=== PATIENT | female | born 1935 | race Caucasian/White ===

== ENCOUNTER 2021-04-16 10:49 | Inpatient (IN) ==
[2021-04-16] MEDS ORDERED: HYDROmorphone 2 MG/1 ML VIAL IV STA (11:13)
[2021-04-16] MEDS ORDERED: ONDANSETRON 4 MG/2 ML VIAL IV STA ×2 (11:13→12:22)
[2021-04-16 11:45] LABS: Basophils % 0.4 % (0.0-0.8); Eosinophils # 0.1 10*3/uL (0.0-0.87); Eosinophils % 1.3 % (0.00-10.9); Hematocrit 30.7 VOL% (35.7-47.0); Hemoglobin 9.9 GM/DL (12.0-16.0); Immature Granulocytes % 0.4 %; Immature Granulocytes Absolute 0.03 #; Lymphocytes # 1.2 10*3/uL (1.4-4.0); Mean Corpuscular HGB Conc 32.2 GM/DL (32-36); Mean Corpuscular Volume 90.3 FL (87-102); Mean Platelet Volume 9.2 FL (9.6-12.0); Monocytes % 9.4 % (1.7-12.7); Neutrophils % 70.5 % (38.7-73.9); Platelet Count 320 T/CUMM (130-400); Red Cell Distribution Width 14.9 % (9.3-17.3); White Blood Count 6.9 T/CUMM (4-12)
[2021-04-16 12:01] LABS: INR 2.3; PT Patient Result 24.4 SECS (10.5-12.0); Partial Thromboplastin Time 31.5 SECS (23.8-32.1)
[2021-04-16 12:02] LABS: Albumin 3.1 G/DL (3.4-5.0); Bilirubin,Total 0.5 MG/DL (0.20-1.00); Calcium 8.1 MG/DL (8.5-10.1); Osmolality,Calculated 268.2 MOS/KG (273-304); Potassium 4.1 MMOL/L (3.5-5.1); Total Protein 6.6 G/DL (6.4-8.2)
[2021-04-16 13:26] LABS: Bilirubin,Urine Negative (Negative); Blood, Urine Small mg/dL (Negative); Glucose,Urine (UA) Negative (Negative); Hyaline Casts,Urine 1 /LPF (0-3); Ketones,Urine Negative (Negative); Mucus,Urine Occasional /LPF (Occasional); Nitrite,Urine Positive (Negative); Protein,Urine Negative; RBC,Urine 3 /HPF (0-4); Urine Appearance CLEAR (Clear); Urine Color Yellow (Yellow); Urine Specific Gravity 1.009 (1.001-1.035); Urine Urobilinogen < 2.0 EU/DL (<2.0)
[2021-04-16] MEDS ORDERED: cefTRIAXone 1,000 MG in SODIUM CHLORIDE 0.9% 100 ML IV STA (13:33)
[2021-04-16] MEDS ORDERED: ACETAMINOPHEN 325 MG TABLET PO PRN (13:40)
[2021-04-16] MEDS: SODIUM CHLORIDE 0.45% 1,000 ML IV SCH (16:32)
[2021-04-16] MEDS: DOCUSATE SODIUM 100 MG CAPSULE PO SCH (20:30)
[2021-04-16] MEDS: ONDANSETRON 4 MG/2 ML VIAL IV PRN (23:39)
[2021-04-16] MEDS: HYDROmorphone 2 MG/1 ML VIAL IV PRN (23:40)
[2021-04-17] MEDS: methylPREDNISolone SOD SUC 40 MG/1 ML VIAL IV SCH ×3 (00:23→23:09)
[2021-04-17 06:12] LABS: Basophils % 0.3 % (0.0-0.8); Eosinophils % 0.1 % (0.00-10.9); Hematocrit 31.2 VOL% (35.7-47.0); Hemoglobin 9.9 GM/DL (12.0-16.0); Immature Granulocytes % 0.6 %; Immature Granulocytes Absolute 0.04 #; Lymphocytes # 0.8 10*3/uL (1.4-4.0); Lymphocytes % 11.5 % (21.3-54.2); Mean Corpuscular HGB Conc 31.7 GM/DL (32-36); Mean Corpuscular Volume 90.4 FL (87-102); Mean Platelet Volume 9.8 FL (9.6-12.0); Monocytes % 4.1 % (1.7-12.7); Neutrophils % 83.4 % (38.7-73.9); Platelet Count 307 T/CUMM (130-400); Red Blood Count 3.45 MC/CUMM (3.8-5.5); Red Cell Distribution Width 14.6 % (9.3-17.3); White Blood Count 7.1 T/CUMM (4-12)
[2021-04-17] MEDS: SODIUM CHLORIDE 0.45% 1,000 ML IV SCH ×2 (06:19→21:31)
[2021-04-17 06:20] LABS: INR 2.5; PT Patient Result 26.2 SECS (10.5-12.0)
[2021-04-17 06:37] LABS: Risk Ratio 2.02; VLDL Cholesterol 7.6 MG/DL
[2021-04-17] MEDS: HYDROmorphone 2 MG/1 ML VIAL IV PRN ×2 (06:49→14:44)
[2021-04-17] MEDS: ONDANSETRON 4 MG/2 ML VIAL IV PRN (06:50)
[2021-04-17 06:51] LABS: Calcium 8.5 MG/DL (8.5-10.1); Osmolality,Calculated 258.9 MOS/KG (273-304); Potassium 4.1 MMOL/L (3.5-5.1)
[2021-04-17] MEDS ORDERED: PHYTONADIONE INJ 5 MG in SODIUM CHLORIDE 0.9% 50 ML IV ONE (09:00)
[2021-04-17] MEDS: PANTOPRAZOLE 40 MG TABLET PO SCH (09:23)
[2021-04-17] MEDS: DOCUSATE SODIUM 100 MG CAPSULE PO SCH ×2 (09:23→20:07)
[2021-04-17] MEDS: amLODIPine 5 MG TABLET PO SCH (09:23)
[2021-04-17] MEDS: MONTELUKAST 10 MG TABLET PO SCH (09:23)
[2021-04-17] MEDS: cefTRIAXone 1,000 MG in SODIUM CHLORIDE 0.9% 100 ML IV SCH (09:23)
[2021-04-17] MEDS: LORATADINE 10 MG TABLET PO SCH (09:24)
[2021-04-17] MEDS: ATORVASTATIN 40 MG TABLET PO SCH (20:07)
[2021-04-18] MEDS: HYDROmorphone 2 MG/1 ML VIAL IV PRN ×2 (04:46→19:49)
[2021-04-18 05:24] LABS: Basophils % 0.1 % (0.0-0.8); Hematocrit 32.9 VOL% (35.7-47.0); Hemoglobin 10.8 GM/DL (12.0-16.0); Immature Granulocytes % 0.8 %; Immature Granulocytes Absolute 0.06 #; Lymphocytes # 0.9 10*3/uL (1.4-4.0); Lymphocytes % 12.8 % (21.3-54.2); Mean Corpuscular HGB Conc 32.8 GM/DL (32-36); Mean Corpuscular Volume 88.7 FL (87-102); Mean Platelet Volume 9.3 FL (9.6-12.0); Monocytes % 5.3 % (1.7-12.7); Platelet Count 337 T/CUMM (130-400); Red Blood Count 3.71 MC/CUMM (3.8-5.5); Red Cell Distribution Width 14.5 % (9.3-17.3); White Blood Count 7.1 T/CUMM (4-12)
[2021-04-18 05:30] LABS: INR 1.1; PT Patient Result 12.5 SECS (10.5-12.0)
[2021-04-18] MEDS ORDERED: REGADENOSON 0.4 MG/5 ML SYRINGE IV ONE (09:18)
[2021-04-18] MEDS: cefTRIAXone 1,000 MG in SODIUM CHLORIDE 0.9% 100 ML IV SCH (10:31)
[2021-04-18] MEDS: LORATADINE 10 MG TABLET PO SCH (10:32)
[2021-04-18] MEDS: MONTELUKAST 10 MG TABLET PO SCH (10:32)
[2021-04-18] MEDS: PANTOPRAZOLE 40 MG TABLET PO SCH (10:32)
[2021-04-18] MEDS: amLODIPine 5 MG TABLET PO SCH (10:32)
[2021-04-18] MEDS: DOCUSATE SODIUM 100 MG CAPSULE PO SCH ×2 (10:32→20:44)
[2021-04-18] MEDS: ATORVASTATIN 40 MG TABLET PO SCH (10:32)
[2021-04-18] MEDS: methylPREDNISolone SOD SUC 40 MG/1 ML VIAL IV SCH (11:55)
[2021-04-18] MEDS: SODIUM CHLORIDE 0.45% 1,000 ML IV SCH (15:01)
[2021-04-19] MEDS: methylPREDNISolone SOD SUC 40 MG/1 ML VIAL IV SCH ×2 (00:36→12:16)
[2021-04-19] MEDS: HYDROmorphone 2 MG/1 ML VIAL IV PRN ×3 (01:47→23:59)
[2021-04-19] MEDS: SODIUM CHLORIDE 0.45% 1,000 ML IV SCH ×3 (01:48→15:42)
[2021-04-19 05:59] LABS: PT Patient Result 11.4 SECS (10.5-12.0)
[2021-04-19 07:43] LABS: Calcium 8.4 MG/DL (8.5-10.1); Osmolality,Calculated 266.5 MOS/KG (273-304); Potassium 4.2 MMOL/L (3.5-5.1)
[2021-04-19] MEDS: amLODIPine 5 MG TABLET PO SCH (08:39)
[2021-04-19] MEDS: LORATADINE 10 MG TABLET PO SCH (08:39)
[2021-04-19] MEDS: ATORVASTATIN 40 MG TABLET PO SCH (08:39)
[2021-04-19] MEDS: cefTRIAXone 1,000 MG in SODIUM CHLORIDE 0.9% 100 ML IV SCH (08:40)
[2021-04-19] MEDS: PANTOPRAZOLE 40 MG TABLET PO SCH (08:40)
[2021-04-19] MEDS: DOCUSATE SODIUM 100 MG CAPSULE PO SCH ×2 (08:40→20:44)
[2021-04-19 09:22] LABS: ABG Base Excess 4.1 MMOL/L (-2.5-2.5); ABG HCO3 28.1 MMOL/L (20-26); ABG Oxygen Saturation 98.2 % (95-100); ABG PCO2 38.5 MM HG (35-48); ABG PH 7.468 (7.35-7.45); ABG PO2 99.6 MM HG (80-95); ABG TCO2 24.9 MMOL/L (23-27); Allen Test Positive; Pt O2 Delivery Device Room Air
[2021-04-19] MEDS: MONTELUKAST 10 MG TABLET PO SCH (09:47)
[2021-04-19] MEDS ORDERED: ETOMIDATE 40 MG/20 ML VIAL IV ONE (18:15)
[2021-04-19] MEDS ORDERED: SEVOFLURANE 1 UNIT/15 MINUTE INH ONE (18:15)
[2021-04-19] MEDS ORDERED: ROCURONIUM 50 MG/5 ML VIAL IV ONE (18:15)
[2021-04-19] MEDS ORDERED: LIDOCAINE 2% 5 ML VIAL ONE (18:15)
[2021-04-19] MEDS ORDERED: ONDANSETRON 4 MG/2 ML VIAL ONE ×2 (18:15→18:22)
[2021-04-19] MEDS ORDERED: DEXAMETHASONE 4 MG/1 ML VIAL ONE (18:15)
[2021-04-19] MEDS ORDERED: TRANEXAMIC ACID 1,000 MG/10 ML VIAL ONE (18:15)
[2021-04-19] MEDS ORDERED: fentaNYL 100 MCG/2 ML VIAL ONE (18:16)
[2021-04-19] MEDS ORDERED: ENOXAPARIN 30 MG/0.3 ML SYRINGE SUBCUT SCH (18:30)
[2021-04-19] MEDS ORDERED: METOPROLOL TARTRATE 25 MG TABLET PO ONE (19:04)
[2021-04-19] MEDS: ONDANSETRON 4 MG/2 ML VIAL IV PRN (23:58)
[2021-04-20] MEDS: methylPREDNISolone SOD SUC 40 MG/1 ML VIAL IV SCH ×3 (00:39→23:58)
[2021-04-20] MEDS: SODIUM CHLORIDE 0.45% 1,000 ML IV SCH ×2 (05:43→20:52)
[2021-04-20] MEDS: LORATADINE 10 MG TABLET PO SCH (09:24)
[2021-04-20] MEDS: DOCUSATE SODIUM 100 MG CAPSULE PO SCH ×2 (09:24→20:52)
[2021-04-20] MEDS: ATORVASTATIN 40 MG TABLET PO SCH (09:24)
[2021-04-20] MEDS: PANTOPRAZOLE 40 MG TABLET PO SCH (09:24)
[2021-04-20] MEDS: amLODIPine 5 MG TABLET PO SCH (09:24)
[2021-04-20] MEDS: MONTELUKAST 10 MG TABLET PO SCH (09:26)
[2021-04-20] MEDS: cefTRIAXone 1,000 MG in SODIUM CHLORIDE 0.9% 100 ML IV SCH (09:27)
[2021-04-20] MEDS: METOPROLOL TARTRATE 50 MG TABLET PO SCH (09:52)
[2021-04-20] MEDS: HYDROmorphone 2 MG/1 ML VIAL IV PRN (14:24)
[2021-04-21] MEDS ORDERED: SCOPOLAMINE 1.5 MG PATCH TRANSDERM ONE ×2 (04:00→05:30)
[2021-04-21 05:56] LABS: Hematocrit 36.8 VOL% (35.7-47.0); Hemoglobin 12.1 GM/DL (12.0-16.0)
[2021-04-21 06:05] LABS: PT Patient Result 11.4 SECS (10.5-12.0)
[2021-04-21] MEDS ORDERED: MIDAZOLAM 2 MG/2 ML VIAL ONE (06:38)
[2021-04-21] MEDS ORDERED: LIDOCAINE 2% 5 ML VIAL ONE (06:38)
[2021-04-21] MEDS ORDERED: PHENYLEPHRINE 1 MG/10 ML SYRINGE IV ONE ×2 (06:38→10:25)
[2021-04-21] MEDS ORDERED: propofoL 200 MG/20 ML VIAL IV ONE ×2 (06:38→09:42)
[2021-04-21] MEDS ORDERED: KETAMINE 500 MG/10 ML VIAL ONE (06:39)
[2021-04-21] MEDS ORDERED: BUPIVACAINE SPINAL 0.75% 2 ML AMP SPINAL ONE (06:41)
[2021-04-21] MEDS ORDERED: SODIUM CHLORIDE 0.9% 100 ML IV ONE (06:41)
[2021-04-21] MEDS: METOPROLOL TARTRATE 50 MG TABLET PO SCH (07:25)
[2021-04-21] MEDS ORDERED: ceFAZolin 1,000 MG VIAL ONE (09:10)
[2021-04-21] MEDS ORDERED: ONDANSETRON 4 MG/2 ML VIAL IV PRN (11:54)
[2021-04-21] MEDS ORDERED: MEPERIDINE 25 MG/1 ML VIAL IV PRN (11:54)
[2021-04-21] MEDS: LORATADINE 10 MG TABLET PO SCH (11:56)
[2021-04-21] MEDS: DOCUSATE SODIUM 100 MG CAPSULE PO SCH ×2 (11:56→20:31)
[2021-04-21] MEDS: ATORVASTATIN 40 MG TABLET PO SCH (11:56)
[2021-04-21] MEDS: PANTOPRAZOLE 40 MG TABLET PO SCH (11:57)
[2021-04-21] MEDS: MONTELUKAST 10 MG TABLET PO SCH (11:57)
[2021-04-21] MEDS: amLODIPine 5 MG TABLET PO SCH (11:57)
[2021-04-21] MEDS: cefTRIAXone 1,000 MG in SODIUM CHLORIDE 0.9% 100 ML IV SCH (11:59)
[2021-04-21] MEDS: methylPREDNISolone SOD SUC 40 MG/1 ML VIAL IV SCH (12:25)
[2021-04-21] MEDS: SODIUM CHLORIDE 0.45% 1,000 ML IV SCH ×2 (13:25→14:15)
[2021-04-21] MEDS: ENOXAPARIN 30 MG/0.3 ML SYRINGE SUBCUT SCH (20:31)
[2021-04-22] MEDS: methylPREDNISolone SOD SUC 40 MG/1 ML VIAL IV SCH ×2 (00:22→11:46)
[2021-04-22] MEDS: SODIUM CHLORIDE 0.45% 1,000 ML IV SCH ×3 (04:17→21:41)
[2021-04-22] MEDS: METOPROLOL TARTRATE 50 MG TABLET PO SCH (09:10)
[2021-04-22] MEDS: LORATADINE 10 MG TABLET PO SCH (09:10)
[2021-04-22] MEDS: PANTOPRAZOLE 40 MG TABLET PO SCH (09:10)
[2021-04-22] MEDS: amLODIPine 5 MG TABLET PO SCH (09:10)
[2021-04-22] MEDS: ATORVASTATIN 40 MG TABLET PO SCH (09:10)
[2021-04-22] MEDS: DOCUSATE SODIUM 100 MG CAPSULE PO SCH ×2 (09:10→20:31)
[2021-04-22] MEDS: MONTELUKAST 10 MG TABLET PO SCH (09:10)
[2021-04-22] MEDS: ENOXAPARIN 30 MG/0.3 ML SYRINGE SUBCUT SCH ×2 (09:11→20:32)
[2021-04-22] MEDS: cefTRIAXone 1,000 MG in SODIUM CHLORIDE 0.9% 100 ML IV SCH (09:11)
[2021-04-22 10:47] LABS: PT Patient Result 11.6 SECS (10.5-12.0)
[2021-04-22] MEDS: HYDROmorphone 2 MG/1 ML VIAL IV PRN (11:45)
[2021-04-22] MEDS: ONDANSETRON 4 MG/2 ML VIAL IV PRN (11:46)
[2021-04-22] MEDS: WARFARIN 7.5 MG TABLET PO SCH (17:32)
[2021-04-23] MEDS: methylPREDNISolone SOD SUC 40 MG/1 ML VIAL IV SCH ×2 (01:07→12:46)
[2021-04-23] MEDS: SODIUM CHLORIDE 0.45% 1,000 ML IV SCH ×3 (07:45→19:20)
[2021-04-23] MEDS: HYDROmorphone 2 MG/1 ML VIAL IV PRN (09:06)
[2021-04-23] MEDS: ONDANSETRON 4 MG/2 ML VIAL IV PRN (09:09)
[2021-04-23] MEDS: ENOXAPARIN 30 MG/0.3 ML SYRINGE SUBCUT SCH ×2 (09:11→20:40)
[2021-04-23] MEDS: MONTELUKAST 10 MG TABLET PO SCH (09:11)
[2021-04-23] MEDS: METOPROLOL TARTRATE 50 MG TABLET PO SCH (09:11)
[2021-04-23] MEDS: LORATADINE 10 MG TABLET PO SCH (09:11)
[2021-04-23] MEDS: amLODIPine 5 MG TABLET PO SCH (09:11)
[2021-04-23] MEDS: PANTOPRAZOLE 40 MG TABLET PO SCH (09:11)
[2021-04-23] MEDS: cefTRIAXone 1,000 MG in SODIUM CHLORIDE 0.9% 100 ML IV SCH (09:11)
[2021-04-23] MEDS: ATORVASTATIN 40 MG TABLET PO SCH (09:11)
[2021-04-23] MEDS: DOCUSATE SODIUM 100 MG CAPSULE PO SCH ×2 (09:11→20:39)
[2021-04-23] MEDS: WARFARIN 7.5 MG TABLET PO SCH (17:07)
[2021-04-24] MEDS: methylPREDNISolone SOD SUC 40 MG/1 ML VIAL IV SCH ×2 (00:20→11:54)
[2021-04-24] MEDS: LORATADINE 10 MG TABLET PO SCH (08:21)
[2021-04-24] MEDS: MONTELUKAST 10 MG TABLET PO SCH (08:21)
[2021-04-24] MEDS: DOCUSATE SODIUM 100 MG CAPSULE PO SCH ×2 (08:21→21:05)
[2021-04-24] MEDS: amLODIPine 5 MG TABLET PO SCH (08:22)
[2021-04-24] MEDS: ATORVASTATIN 40 MG TABLET PO SCH (08:22)
[2021-04-24] MEDS: PANTOPRAZOLE 40 MG TABLET PO SCH (08:22)
[2021-04-24] MEDS: METOPROLOL TARTRATE 50 MG TABLET PO SCH ×3 (08:22→21:05)
[2021-04-24] MEDS: ENOXAPARIN 30 MG/0.3 ML SYRINGE SUBCUT SCH ×2 (08:25→21:06)
[2021-04-24] MEDS: cefTRIAXone 1,000 MG in SODIUM CHLORIDE 0.9% 100 ML IV SCH (08:26)
[2021-04-24 08:56] LABS: Basophils % 0.1 % (0.0-0.8); Eosinophils % 0.3 % (0.00-10.9); Hematocrit 34.6 VOL% (35.7-47.0); Immature Granulocytes % 1.2 %; Immature Granulocytes Absolute 0.16 #; Lymphocytes % 14.6 % (21.3-54.2); Mean Corpuscular HGB Conc 31.8 GM/DL (32-36); Mean Corpuscular Volume 91.1 FL (87-102); Mean Platelet Volume 9.2 FL (9.6-12.0); Monocytes % 8.7 % (1.7-12.7); Neutrophils % 75.1 % (38.7-73.9); Platelet Count 350 T/CUMM (130-400); Red Cell Distribution Width 14.6 % (9.3-17.3); White Blood Count 13.9 T/CUMM (4-12)
[2021-04-24] MEDS: DESITIN 4OZ/NYSTATIN 15 GRAM MIXTURE PASTE TOP SCH ×2 (12:50→21:06)
[2021-04-24] MEDS: WARFARIN 7.5 MG TABLET PO SCH (18:00)
[2021-04-25] MEDS: methylPREDNISolone SOD SUC 40 MG/1 ML VIAL IV SCH ×2 (00:16→11:56)
[2021-04-25 05:27] LABS: Basophils % 0.1 % (0.0-0.8); Eosinophils # 0.1 10*3/uL (0.0-0.87); Eosinophils % 0.7 % (0.00-10.9); Hematocrit 29.1 VOL% (35.7-47.0); Hemoglobin 9.6 GM/DL (12.0-16.0); Immature Granulocytes Absolute 0.12 #; Lymphocytes # 1.5 10*3/uL (1.4-4.0); Lymphocytes % 12.6 % (21.3-54.2); Mean Platelet Volume 9.5 FL (9.6-12.0); Neutrophils % 74.6 % (38.7-73.9); Platelet Count 337 T/CUMM (130-400); Red Blood Count 3.27 MC/CUMM (3.8-5.5); Red Cell Distribution Width 14.6 % (9.3-17.3); White Blood Count 11.9 T/CUMM (4-12)
[2021-04-25 05:41] LABS: INR 1.1; PT Patient Result 12.8 SECS (10.5-12.0)
[2021-04-25 05:56] LABS: Calcium 7.9 MG/DL (8.5-10.1); Osmolality,Calculated 266.4 MOS/KG (273-304); Potassium 3.3 MMOL/L (3.5-5.1)
[2021-04-25] MEDS ORDERED: DEXTROMETHORPHAN GUAIFENESIN PO PRN (07:54)
[2021-04-25] MEDS ORDERED: MAGNESIUM SULF RIDER 2 GM/50 ML PREMIX IV ONE (08:00)
[2021-04-25] MEDS ORDERED: POTASSIUM CHLORIDE 20 MEQ TABLET PO ONE (08:00)
[2021-04-25] MEDS: LORATADINE 10 MG TABLET PO SCH (08:55)
[2021-04-25] MEDS: DOCUSATE SODIUM 100 MG CAPSULE PO SCH ×2 (08:55→20:36)
[2021-04-25] MEDS: MONTELUKAST 10 MG TABLET PO SCH (08:55)
[2021-04-25] MEDS: ASCORBIC ACID 500 MG TABLET PO SCH (08:55)
[2021-04-25] MEDS: PANTOPRAZOLE 40 MG TABLET PO SCH (08:55)
[2021-04-25] MEDS: CYANOCOBALAMIN 500 MCG TABLET PO SCH (08:56)
[2021-04-25] MEDS: METOPROLOL TARTRATE 50 MG TABLET PO SCH ×2 (08:56→20:36)
[2021-04-25] MEDS: ATORVASTATIN 40 MG TABLET PO SCH (08:56)
[2021-04-25] MEDS: FUROSEMIDE 40 MG TABLET PO SCH (08:56)
[2021-04-25] MEDS: CALCIUM (CARBONATE) 500 MG TABLET PO SCH (08:57)
[2021-04-25] MEDS: ENOXAPARIN 30 MG/0.3 ML SYRINGE SUBCUT SCH ×2 (08:57→20:37)
[2021-04-25] MEDS: CHOLECALCIFEROL 400 UNIT TABLET PO SCH (08:58)
[2021-04-25] MEDS: DESITIN 4OZ/NYSTATIN 15 GRAM MIXTURE PASTE TOP SCH ×2 (09:01→20:37)
[2021-04-25] MEDS: WARFARIN 7.5 MG TABLET PO SCH (17:37)
[2021-04-26] MEDS: methylPREDNISolone SOD SUC 40 MG/1 ML VIAL IV SCH ×2 (00:39→13:19)
[2021-04-26 06:06] LABS: Basophils % 0.1 % (0.0-0.8); Eosinophils # 0.2 10*3/uL (0.0-0.87); Eosinophils % 1.8 % (0.00-10.9); Hematocrit 27.1 VOL% (35.7-47.0); Hemoglobin 8.7 GM/DL (12.0-16.0); Immature Granulocytes % 0.9 %; Immature Granulocytes Absolute 0.08 #; Lymphocytes # 1.5 10*3/uL (1.4-4.0); Lymphocytes % 17.6 % (21.3-54.2); Mean Corpuscular HGB Conc 32.1 GM/DL (32-36); Mean Corpuscular Volume 89.7 FL (87-102); Mean Platelet Volume 9.1 FL (9.6-12.0); Monocytes % 13.5 % (1.7-12.7); Neutrophils % 66.1 % (38.7-73.9); Platelet Count 334 T/CUMM (130-400); Red Blood Count 3.02 MC/CUMM (3.8-5.5); Red Cell Distribution Width 14.7 % (9.3-17.3); White Blood Count 8.8 T/CUMM (4-12)
[2021-04-26 06:16] LABS: INR 1.2; PT Patient Result 13.5 SECS (10.5-12.0)
[2021-04-26 06:24] LABS: Calcium 7.8 MG/DL (8.5-10.1); Osmolality,Calculated 273.8 MOS/KG (273-304); Potassium 3.3 MMOL/L (3.5-5.1)
[2021-04-26] MEDS ORDERED: POTASSIUM CHLORIDE 20 MEQ TABLET PO ONE (07:30)
[2021-04-26] MEDS: CHOLECALCIFEROL 400 UNIT TABLET PO SCH (09:28)
[2021-04-26] MEDS: CYANOCOBALAMIN 500 MCG TABLET PO SCH (09:28)
[2021-04-26] MEDS: MONTELUKAST 10 MG TABLET PO SCH (09:28)
[2021-04-26] MEDS: ASCORBIC ACID 500 MG TABLET PO SCH (09:29)
[2021-04-26] MEDS: METOPROLOL TARTRATE 50 MG TABLET PO SCH ×2 (09:29→21:29)
[2021-04-26] MEDS: ATORVASTATIN 40 MG TABLET PO SCH (09:29)
[2021-04-26] MEDS: DOCUSATE SODIUM 100 MG CAPSULE PO SCH ×2 (09:29→21:29)
[2021-04-26] MEDS: FUROSEMIDE 40 MG TABLET PO SCH (09:29)
[2021-04-26] MEDS: LORATADINE 10 MG TABLET PO SCH (09:29)
[2021-04-26] MEDS: DESITIN 4OZ/NYSTATIN 15 GRAM MIXTURE PASTE TOP SCH ×2 (09:30→22:14)
[2021-04-26] MEDS: PANTOPRAZOLE 40 MG TABLET PO SCH (09:30)
[2021-04-26] MEDS: CALCIUM (CARBONATE) 500 MG TABLET PO SCH (09:30)
[2021-04-26] MEDS: ENOXAPARIN 30 MG/0.3 ML SYRINGE SUBCUT SCH ×2 (09:33→21:30)
[2021-04-26] MEDS ORDERED: WARFARIN 2.5 MG TABLET PO ONE (18:00)
[2021-04-26] MEDS: WARFARIN 7.5 MG TABLET PO SCH (18:48)
[2021-04-27] MEDS: methylPREDNISolone SOD SUC 40 MG/1 ML VIAL IV SCH (00:42)
[2021-04-27 04:44] LABS: Basophils % 0.1 % (0.0-0.8); Eosinophils # 0.1 10*3/uL (0.0-0.87); Eosinophils % 0.9 % (0.00-10.9); Hematocrit 29.9 VOL% (35.7-47.0); Hemoglobin 9.5 GM/DL (12.0-16.0); Immature Granulocytes % 0.8 %; Lymphocytes # 0.8 10*3/uL (1.4-4.0); Lymphocytes % 6.4 % (21.3-54.2); Mean Corpuscular HGB Conc 31.8 GM/DL (32-36); Mean Corpuscular Volume 89.3 FL (87-102); Mean Platelet Volume 8.8 FL (9.6-12.0); Monocytes % 6.3 % (1.7-12.7); Neutrophils % 85.5 % (38.7-73.9); Platelet Count 341 T/CUMM (130-400); Red Blood Count 3.35 MC/CUMM (3.8-5.5); Red Cell Distribution Width 14.6 % (9.3-17.3); White Blood Count 12.9 T/CUMM (4-12)
[2021-04-27 04:52] LABS: INR 1.4; PT Patient Result 15.4 SECS (10.5-12.0)
[2021-04-27 05:08] LABS: Calcium 7.7 MG/DL (8.5-10.1); Osmolality,Calculated 267.4 MOS/KG (273-304); Potassium 3.2 MMOL/L (3.5-5.1)
[2021-04-27] MEDS ORDERED: MAGNESIUM SULF RIDER 2 GM/50 ML PREMIX IV ONE (07:48)
[2021-04-27] MEDS ORDERED: POTASSIUM CHLORIDE 20 MEQ TABLET PO ONE (08:00)
[2021-04-27] MEDS: CHOLECALCIFEROL 400 UNIT TABLET PO SCH (08:13)
[2021-04-27] MEDS: DOCUSATE SODIUM 100 MG CAPSULE PO SCH ×2 (08:13→21:39)
[2021-04-27] MEDS: ASCORBIC ACID 500 MG TABLET PO SCH (08:15)
[2021-04-27] MEDS: PANTOPRAZOLE 40 MG TABLET PO SCH (08:15)
[2021-04-27] MEDS: MONTELUKAST 10 MG TABLET PO SCH (08:16)
[2021-04-27] MEDS: METOPROLOL TARTRATE 50 MG TABLET PO SCH ×2 (08:16→21:39)
[2021-04-27] MEDS: CYANOCOBALAMIN 500 MCG TABLET PO SCH (08:16)
[2021-04-27] MEDS: ATORVASTATIN 40 MG TABLET PO SCH (08:16)
[2021-04-27] MEDS: FUROSEMIDE 40 MG TABLET PO SCH (08:17)
[2021-04-27] MEDS: LORATADINE 10 MG TABLET PO SCH (08:17)
[2021-04-27] MEDS: CALCIUM (CARBONATE) 500 MG TABLET PO SCH (08:17)
[2021-04-27] MEDS: DESITIN 4OZ/NYSTATIN 15 GRAM MIXTURE PASTE TOP SCH ×2 (08:20→21:40)
[2021-04-27] MEDS ORDERED: WARFARIN 2.5 MG TABLET PO ONE (08:20)
[2021-04-27] MEDS: MAGNESIUM SULF RIDER 2 GM/50 ML PREMIX IV ONE ×2 (09:02→09:03)
[2021-04-27] MEDS ORDERED: WARFARIN 7.5 MG TABLET PO SCH (18:00)
[2021-04-28 05:01] LABS: Basophils % 0.1 % (0.0-0.8); Eosinophils # 0.2 10*3/uL (0.0-0.87); Eosinophils % 2.2 % (0.00-10.9); Hematocrit 27.8 VOL% (35.7-47.0); Immature Granulocytes % 0.7 %; Immature Granulocytes Absolute 0.07 #; Lymphocytes # 1.9 10*3/uL (1.4-4.0); Lymphocytes % 18.2 % (21.3-54.2); Mean Corpuscular HGB Conc 32.4 GM/DL (32-36); Mean Corpuscular Volume 90.6 FL (87-102); Mean Platelet Volume 8.9 FL (9.6-12.0); Neutrophils % 71.8 % (38.7-73.9); Platelet Count 359 T/CUMM (130-400); Red Blood Count 3.07 MC/CUMM (3.8-5.5); Red Cell Distribution Width 14.7 % (9.3-17.3); White Blood Count 10.2 T/CUMM (4-12)
[2021-04-28 05:08] LABS: INR 1.6; PT Patient Result 17.8 SECS (10.5-12.0)
[2021-04-28 05:13] LABS: Calcium 7.7 MG/DL (8.5-10.1); Osmolality,Calculated 273.8 MOS/KG (273-304); Potassium 3.3 MMOL/L (3.5-5.1)
[2021-04-28] MEDS ORDERED: WARFARIN 5 MG TABLET PO ONE (08:00)
[2021-04-28] MEDS: CYANOCOBALAMIN 500 MCG TABLET PO SCH (08:11)
[2021-04-28] MEDS: METOPROLOL TARTRATE 50 MG TABLET PO SCH (08:11)
[2021-04-28] MEDS: MONTELUKAST 10 MG TABLET PO SCH (08:11)
[2021-04-28] MEDS: ATORVASTATIN 40 MG TABLET PO SCH (08:12)
[2021-04-28] MEDS: CALCIUM (CARBONATE) 500 MG TABLET PO SCH (08:12)
[2021-04-28] MEDS: ASCORBIC ACID 500 MG TABLET PO SCH (08:12)
[2021-04-28] MEDS: LORATADINE 10 MG TABLET PO SCH (08:12)
[2021-04-28] MEDS: FUROSEMIDE 40 MG TABLET PO SCH (08:12)
[2021-04-28] MEDS: PANTOPRAZOLE 40 MG TABLET PO SCH (08:12)
[2021-04-28] MEDS: DOCUSATE SODIUM 100 MG CAPSULE PO SCH (08:12)
[2021-04-28] MEDS: CHOLECALCIFEROL 400 UNIT TABLET PO SCH (08:12)
[2021-04-28] MEDS: DESITIN 4OZ/NYSTATIN 15 GRAM MIXTURE PASTE TOP SCH (08:23)
[2021-04-28] MEDS ORDERED: POTASSIUM CHLORIDE 20 MEQ TABLET PO ONE (08:46)
[2021-04-28 16:07] VITALS: BP 124/51
== END 2021-04-28 17:25 | disposition home health service (06) | DRG 522 ==
LOC: N.ED 10:49 → N.EDINP 13:40 → N.3E 14:40
PROVIDERS: ADMIT Family Medicine; ATTEND Family Medicine

== ENCOUNTER 2021-07-05 15:23 | Inpatient (IN) ==
[2021-07-05] MEDS ORDERED: fentaNYL 100 MCG/2 ML VIAL IV STA (16:10)
[2021-07-05] MEDS ORDERED: ONDANSETRON 4 MG/2 ML VIAL IV STA (16:10)
[2021-07-05 16:34] LABS: Basophils % 0.1 % (0.0-0.8); Eosinophils # 0.1 10*3/uL (0.0-0.87); Eosinophils % 1.3 % (0.00-10.9); Immature Granulocytes % 0.8 %; Immature Granulocytes Absolute 0.07 #; Lymphocytes # 1.7 10*3/uL (1.4-4.0); Lymphocytes % 19.8 % (21.3-54.2); Mean Corpuscular HGB Conc 30.5 GM/DL (32-36); Mean Corpuscular Volume 86.5 FL (87-102); Mean Platelet Volume 8.4 FL (9.6-12.0); Monocytes % 10.2 % (1.7-12.7); Neutrophils % 67.8 % (38.7-73.9); Platelet Count 606 T/CUMM (130-400); Red Blood Count 1.48 MC/CUMM (3.8-5.5); Red Cell Distribution Width 15.9 % (9.3-17.3); White Blood Count 8.5 T/CUMM (4-12)
[2021-07-05 16:39] LABS: Hematocrit 12.8 VOL% (35.7-47.0); Hemoglobin 3.9 GM/DL (12.0-16.0)
[2021-07-05 16:58] LABS: Albumin 1.9 G/DL (3.4-5.0); Bilirubin,Total 1.5 MG/DL (0.20-1.00); Calcium 7.8 MG/DL (8.5-10.1); Osmolality,Calculated 265.8 MOS/KG (273-304); Potassium 4.6 MMOL/L (3.5-5.1); Total Protein 5.9 G/DL (6.4-8.2)
[2021-07-05 16:59] LABS: PT Patient Result 84.1 SECS (10.5-12.0); Partial Thromboplastin Time 68.3 SECS (23.8-32.1)
[2021-07-05 17:00] LABS: Eosinophils 1 % (0-10); Lymphocytes 20 % (20-55); Platelet Estimate Increased; Segmented Neutrophils 68 % (50-85); Total Cells Counted 100
[2021-07-05 18:02] LABS: INR 8.8
[2021-07-05] MEDS ORDERED: ONDANSETRON 4 MG/2 ML VIAL IV PRN (18:58)
[2021-07-05] MEDS ORDERED: SODIUM CHLORIDE 0.9% 1,000 ML IV PRN (18:58)
[2021-07-05] MEDS: SODIUM CHLORIDE 0.9% 1,000 ML IV SCH (21:15)
[2021-07-05] MEDS: DOCUSATE SODIUM 100 MG CAPSULE PO SCH (21:15)
[2021-07-05] MEDS: ACETAMINOPHEN 325 MG TABLET PO PRN (21:15)
[2021-07-06] MEDS: traMADol 50 MG TABLET PO PRN ×2 (00:09→09:08)
[2021-07-06] MEDS: SODIUM CHLORIDE 0.9% 1,000 ML IV SCH ×3 (00:22→11:18)
[2021-07-06] MEDS: ACETAMINOPHEN 325 MG TABLET PO PRN ×3 (02:45→21:19)
[2021-07-06 09:00] LABS: Basophils % 0.2 % (0.0-0.8); Eosinophils % 0.1 % (0.00-10.9); Immature Granulocytes % 1.6 %; Immature Granulocytes Absolute 0.21 #; Lymphocytes # 1.2 10*3/uL (1.4-4.0); Mean Corpuscular HGB Conc 30.4 GM/DL (32-36); Mean Corpuscular Volume 84.5 FL (87-102); Mean Platelet Volume 9.3 FL (9.6-12.0); NRBC # 0.02 10*3/uL; Neutrophils % 85.1 % (38.7-73.9); Platelet Count 597 T/CUMM (130-400); Red Blood Count 1.87 MC/CUMM (3.8-5.5); Red Cell Distribution Width 19.7 % (9.3-17.3); White Blood Count 13.1 T/CUMM (4-12)
[2021-07-06] MEDS ORDERED: PHYTONADIONE 10 MG/1 ML AMP SUBCUT ONE (09:00)
[2021-07-06 09:06] LABS: Hemoglobin 4.8 GM/DL (12.0-16.0)
[2021-07-06] MEDS: DOCUSATE SODIUM 100 MG CAPSULE PO SCH ×2 (09:08→21:18)
[2021-07-06] MEDS: POTASSIUM CHLORIDE 20 MEQ TABLET PO SCH (09:08)
[2021-07-06] MEDS: PANTOPRAZOLE 40 MG TABLET PO SCH (09:08)
[2021-07-06] MEDS: carvediloL 25 MG TABLET PO SCH ×2 (09:08→17:39)
[2021-07-06] MEDS: FUROSEMIDE 40 MG TABLET PO SCH (09:08)
[2021-07-06] MEDS: ATORVASTATIN 40 MG TABLET PO SCH (09:08)
[2021-07-06 09:09] LABS: Hematocrit 15.8 VOL% (35.7-47.0)
[2021-07-06 09:15] LABS: PT Patient Result 52.8 SECS (10.5-12.0)
[2021-07-06 09:20] LABS: INR 5.3
[2021-07-06] MEDS ORDERED: SODIUM CHLORIDE 0.9% 1,000 ML IV PRN ×2 (09:48→12:15)
[2021-07-06 10:18] LABS: Hemoglobin 4.4 GM/DL (12.0-16.0)
[2021-07-06 10:19] LABS: Hematocrit 14.2 VOL% (35.7-47.0)
[2021-07-06] MEDS: cefTRIAXone 1,000 MG in SODIUM CHLORIDE 0.9% 100 ML IV SCH (11:18)
[2021-07-06 20:16] LABS: Hemoglobin 6.9 GM/DL (12.0-16.0)
[2021-07-07 01:01] LABS: Hematocrit 19.3 VOL% (35.7-47.0)
[2021-07-07 01:07] LABS: Hemoglobin 6.2 GM/DL (12.0-16.0)
[2021-07-07 06:52] LABS: Basophils % 0.1 % (0.0-0.8); Eosinophils # 0.1 10*3/uL (0.0-0.87); Eosinophils % 1.1 % (0.00-10.9); Hematocrit 23.2 VOL% (35.7-47.0); Hemoglobin 7.3 GM/DL (12.0-16.0); Immature Granulocytes % 0.8 %; Immature Granulocytes Absolute 0.07 #; Lymphocytes # 1.3 10*3/uL (1.4-4.0); Lymphocytes % 15.2 % (21.3-54.2); Mean Corpuscular HGB Conc 31.5 GM/DL (32-36); Mean Corpuscular Volume 85.9 FL (87-102); Mean Platelet Volume 8.6 FL (9.6-12.0); Monocytes % 12.5 % (1.7-12.7); NRBC # 0.02 10*3/uL; Neutrophils % 70.3 % (38.7-73.9); Platelet Count 457 T/CUMM (130-400); Red Cell Distribution Width 17.2 % (9.3-17.3); White Blood Count 8.4 T/CUMM (4-12)
[2021-07-07 07:05] LABS: INR 2.4; PT Patient Result 25.1 SECS (10.5-12.0)
[2021-07-07 07:20] LABS: Folate 6.17 NG/ML (5.38-24.0); Vitamin B12 > 2000 PG/ML (211-911)
[2021-07-07 08:06] LABS: % Iron Saturation 18.1 % (18-50)
[2021-07-07] MEDS: cefTRIAXone 1,000 MG in SODIUM CHLORIDE 0.9% 100 ML IV SCH (09:20)
[2021-07-07] MEDS: ATORVASTATIN 40 MG TABLET PO SCH (09:21)
[2021-07-07] MEDS: POTASSIUM CHLORIDE 20 MEQ TABLET PO SCH (09:21)
[2021-07-07] MEDS: PANTOPRAZOLE 40 MG TABLET PO SCH (09:21)
[2021-07-07] MEDS: DOCUSATE SODIUM 100 MG CAPSULE PO SCH ×2 (09:21→21:28)
[2021-07-07] MEDS: FUROSEMIDE 40 MG TABLET PO SCH (09:21)
[2021-07-07] MEDS: carvediloL 25 MG TABLET PO SCH ×2 (09:21→17:11)
[2021-07-07] MEDS: traMADol 50 MG TABLET PO PRN ×2 (09:22→23:54)
[2021-07-07 10:00] LABS: Ferritin 167.9 ng/mL (8-252); Total Protein 5.2 G/DL (6.4-8.2)
[2021-07-07] MEDS: SODIUM CHLORIDE 0.9% 1,000 ML IV SCH ×4 (10:51→21:40)
[2021-07-07] MEDS ORDERED: FERRIC GLUCONATE COMPLEX 125 MG in SODIUM CHLORIDE 0.9% 100 ML IV ONE (11:00)
[2021-07-07 11:30] LABS: Hematocrit 22.1 VOL% (35.7-47.0); Hemoglobin 7.2 GM/DL (12.0-16.0)
[2021-07-08 00:54] LABS: Hemoglobin 6.6 GM/DL (12.0-16.0)
[2021-07-08] MEDS: ACETAMINOPHEN 325 MG TABLET PO PRN ×3 (04:14→23:46)
[2021-07-08] MEDS: SODIUM CHLORIDE 0.9% 1,000 ML IV SCH ×2 (06:13→16:28)
[2021-07-08] MEDS: traMADol 50 MG TABLET PO PRN ×3 (06:19→20:21)
[2021-07-08 07:17] LABS: Hematocrit 20.7 VOL% (35.7-47.0); Hemoglobin 6.6 GM/DL (12.0-16.0)
[2021-07-08] MEDS: cefTRIAXone 1,000 MG in SODIUM CHLORIDE 0.9% 100 ML IV SCH (08:23)
[2021-07-08] MEDS: DOCUSATE SODIUM 100 MG CAPSULE PO SCH ×2 (08:24→20:20)
[2021-07-08] MEDS: FUROSEMIDE 40 MG TABLET PO SCH (08:24)
[2021-07-08] MEDS: carvediloL 25 MG TABLET PO SCH ×2 (08:24→17:12)
[2021-07-08] MEDS: POTASSIUM CHLORIDE 20 MEQ TABLET PO SCH (08:24)
[2021-07-08] MEDS: PANTOPRAZOLE 40 MG TABLET PO SCH (08:24)
[2021-07-08] MEDS: ATORVASTATIN 40 MG TABLET PO SCH (08:24)
[2021-07-08 15:36] LABS: Hematocrit 26.1 VOL% (35.7-47.0)
[2021-07-08 15:37] LABS: Hemoglobin 8.4 GM/DL (12.0-16.0)
[2021-07-08 16:23] LABS: Hematocrit 25.7 VOL% (35.7-47.0); Hemoglobin 8.3 GM/DL (12.0-16.0)
[2021-07-08 16:25] LABS: Bacteria,Urine Occasional /HPF (Few); Bilirubin,Urine Negative (Negative); Blood, Urine Negative (Negative); Glucose,Urine (UA) Negative (Negative); Ketones,Urine Negative (Negative); Mucus,Urine Occasional /LPF (Occasional); Nitrite,Urine Negative (Negative); Protein,Urine Negative (Negative); Squamous Epithelial Cell,Urine Occasional /HPF (0-10); Urine Appearance Clear (Clear); Urine Color Light Yellow (Yellow); Urine Urobilinogen 0.2 eU/dL (<2.0); Urine pH 5.5 (4.5-8.0)
[2021-07-08 18:47] LABS: Hematocrit 26.5 VOL% (35.7-47.0); Hemoglobin 8.3 GM/DL (12.0-16.0)
[2021-07-08] MEDS ORDERED: ENOXAPARIN 30 MG/0.3 ML SYRINGE SUBCUT ONE (23:02)
[2021-07-09 06:46] LABS: Basophils % 0.1 % (0.0-0.8); Eosinophils # 0.2 10*3/uL (0.0-0.87); Eosinophils % 2.6 % (0.00-10.9); Hematocrit 26.7 VOL% (35.7-47.0); Hemoglobin 8.4 GM/DL (12.0-16.0); Immature Granulocytes % 1.5 %; Lymphocytes # 1.2 10*3/uL (1.4-4.0); Lymphocytes % 18.2 % (21.3-54.2); Mean Corpuscular HGB Conc 31.5 GM/DL (32-36); Mean Corpuscular Volume 88.1 FL (87-102); Mean Platelet Volume 8.2 FL (9.6-12.0); Monocytes % 12.2 % (1.7-12.7); Neutrophils % 65.4 % (38.7-73.9); Platelet Count 414 T/CUMM (130-400); Red Blood Count 3.03 MC/CUMM (3.8-5.5); Red Cell Distribution Width 17.7 % (9.3-17.3); White Blood Count 6.8 T/CUMM (4-12)
[2021-07-09 06:56] LABS: INR 1.2; PT Patient Result 13.1 SECS (10.5-12.0)
[2021-07-09 07:10] LABS: Calcium 7.4 MG/DL (8.5-10.1); Potassium 3.8 MMOL/L (3.5-5.1)
[2021-07-09] MEDS: SODIUM CHLORIDE 0.9% 1,000 ML IV SCH ×3 (07:48→19:03)
[2021-07-09] MEDS: PANTOPRAZOLE 40 MG TABLET PO SCH (09:02)
[2021-07-09] MEDS: FUROSEMIDE 40 MG TABLET PO SCH (09:02)
[2021-07-09] MEDS: carvediloL 25 MG TABLET PO SCH ×2 (09:03→17:26)
[2021-07-09] MEDS: POTASSIUM CHLORIDE 20 MEQ TABLET PO SCH (09:04)
[2021-07-09] MEDS: DOCUSATE SODIUM 100 MG CAPSULE PO SCH ×2 (09:04→20:00)
[2021-07-09] MEDS: traMADol 50 MG TABLET PO PRN ×2 (09:04→17:26)
[2021-07-09] MEDS: ATORVASTATIN 40 MG TABLET PO SCH (09:04)
[2021-07-09] MEDS: cefTRIAXone 1,000 MG in SODIUM CHLORIDE 0.9% 100 ML IV SCH (09:05)
[2021-07-09] MEDS ORDERED: ENOXAPARIN 30 MG/0.3 ML SYRINGE SUBCUT ONE (09:11)
[2021-07-09 12:00] LABS: Hematocrit 26.8 VOL% (35.7-47.0); Hemoglobin 8.5 GM/DL (12.0-16.0)
[2021-07-09 18:23] LABS: Hematocrit 25.3 VOL% (35.7-47.0)
[2021-07-09] MEDS: ACETAMINOPHEN 325 MG TABLET PO PRN (19:57)
[2021-07-10 00:42] LABS: Hemoglobin 7.8 GM/DL (12.0-16.0)
[2021-07-10] MEDS: SODIUM CHLORIDE 0.9% 1,000 ML IV SCH ×3 (01:37→22:00)
[2021-07-10 05:22] LABS: Hematocrit 26.5 VOL% (35.7-47.0); Hemoglobin 8.4 GM/DL (12.0-16.0)
[2021-07-10 06:57] LABS: Total Protein (Chem) 5.2 G/DL (6.4-8.3)
[2021-07-10] MEDS ORDERED: LACTATED RINGERS 1,000 ML IV SCH (08:00)
[2021-07-10] MEDS ORDERED: propofoL 200 MG/20 ML VIAL IV ONE (08:35)
[2021-07-10] MEDS ORDERED: LIDOCAINE 2% 5 ML VIAL ONE (08:35)
[2021-07-10] MEDS ORDERED: ONDANSETRON 4 MG/2 ML VIAL ONE (08:55)
[2021-07-10 09:28] LABS: Albumin (SPE) 2.6 G/DL (3.2-5.3); Alpha 1 (SPE) 0.4 G/DL (0.1-0.4); Alpha 1 (SPE) Rel % 7.1 %; Alpha 2 (SPE) 0.9 G/DL (0.4-1.0); Alpha 2 (SPE) Rel % 17.2 %; Beta (SPE) 0.5 G/DL (0.5-1.1); Beta (SPE) Rel % 10.4 %; Gamma (SPE) 0.8 G/DL (0.7-1.7); Gamma (SPE) Rel % 15.3 %
[2021-07-10 09:51] LABS: Kappa Free Light Chain 2.78 mg/dL; Lambda Free Light Chain 2.43 mg/dL
[2021-07-10] MEDS: ATORVASTATIN 40 MG TABLET PO SCH (10:16)
[2021-07-10] MEDS: FUROSEMIDE 40 MG TABLET PO SCH (10:16)
[2021-07-10] MEDS: carvediloL 25 MG TABLET PO SCH ×2 (10:16→16:17)
[2021-07-10] MEDS: POTASSIUM CHLORIDE 20 MEQ TABLET PO SCH (10:16)
[2021-07-10] MEDS: DOCUSATE SODIUM 100 MG CAPSULE PO SCH ×2 (10:17→20:35)
[2021-07-10] MEDS: cefTRIAXone 1,000 MG in SODIUM CHLORIDE 0.9% 100 ML IV SCH (10:20)
[2021-07-10] MEDS: PANTOPRAZOLE 40 MG TABLET PO SCH (10:31)
[2021-07-10 11:55] LABS: Hemoglobin 8.2 GM/DL (12.0-16.0)
[2021-07-10] MEDS: FLUCONAZOLE INJ 200 MG/100 ML PREMIX IV SCH (14:43)
[2021-07-10] MEDS: traMADol 50 MG TABLET PO PRN (14:44)
[2021-07-10] MEDS: ACETAMINOPHEN 325 MG TABLET PO PRN (16:17)
[2021-07-10 18:41] LABS: Hematocrit 24.3 VOL% (35.7-47.0); Hemoglobin 7.8 GM/DL (12.0-16.0)
[2021-07-11 00:32] LABS: Hematocrit 27.1 VOL% (35.7-47.0); Hemoglobin 8.4 GM/DL (12.0-16.0)
[2021-07-11] MEDS: ACETAMINOPHEN 325 MG TABLET PO PRN ×2 (01:22→19:23)
[2021-07-11] MEDS: traMADol 50 MG TABLET PO PRN ×3 (02:57→21:44)
[2021-07-11] MEDS: SODIUM CHLORIDE 0.9% 1,000 ML IV SCH ×2 (06:00→17:56)
[2021-07-11] MEDS: DOCUSATE SODIUM 100 MG CAPSULE PO SCH ×2 (08:48→21:44)
[2021-07-11] MEDS: FUROSEMIDE 40 MG TABLET PO SCH (08:48)
[2021-07-11] MEDS: PANTOPRAZOLE 40 MG TABLET PO SCH (08:48)
[2021-07-11] MEDS: ATORVASTATIN 40 MG TABLET PO SCH (08:48)
[2021-07-11] MEDS: carvediloL 25 MG TABLET PO SCH ×2 (08:48→16:16)
[2021-07-11] MEDS: cefTRIAXone 1,000 MG in SODIUM CHLORIDE 0.9% 100 ML IV SCH (08:48)
[2021-07-11] MEDS: POTASSIUM CHLORIDE 20 MEQ TABLET PO SCH (08:48)
[2021-07-11] MEDS ORDERED: TUBERCULIN SKIN TEST 0.1 ML SYRINGE INTRADERM ONE (13:00)
[2021-07-11] MEDS: FLUCONAZOLE INJ 200 MG/100 ML PREMIX IV SCH (14:14)
[2021-07-12] MEDS: SODIUM CHLORIDE 0.9% 1,000 ML IV SCH ×4 (02:38→16:09)
[2021-07-12] MEDS: ATORVASTATIN 40 MG TABLET PO SCH (09:47)
[2021-07-12] MEDS: ACETAMINOPHEN 325 MG TABLET PO PRN (09:47)
[2021-07-12] MEDS: carvediloL 25 MG TABLET PO SCH ×2 (09:48→16:50)
[2021-07-12] MEDS: PANTOPRAZOLE 40 MG TABLET PO SCH (09:48)
[2021-07-12] MEDS: cefTRIAXone 1,000 MG in SODIUM CHLORIDE 0.9% 100 ML IV SCH (09:48)
[2021-07-12] MEDS: FUROSEMIDE 40 MG TABLET PO SCH (09:48)
[2021-07-12] MEDS: POTASSIUM CHLORIDE 20 MEQ TABLET PO SCH (09:48)
[2021-07-12] MEDS: DOCUSATE SODIUM 100 MG CAPSULE PO SCH ×2 (09:48→20:39)
[2021-07-12] MEDS: WARFARIN 7.5 MG TABLET PO SCH (09:53)
[2021-07-12] MEDS: ENOXAPARIN 80 MG/0.8 ML SYRINGE SUBCUT SCH ×2 (09:53→20:39)
[2021-07-12] MEDS: traMADol 50 MG TABLET PO PRN (16:50)
[2021-07-13] MEDS: traMADol 50 MG TABLET PO PRN (02:40)
[2021-07-13 05:50] LABS: INR 1.1; PT Patient Result 12.6 SECS (10.5-12.0)
[2021-07-13] MEDS: SODIUM CHLORIDE 0.9% 1,000 ML IV SCH ×3 (06:32→12:32)
[2021-07-13] MEDS: ENOXAPARIN 80 MG/0.8 ML SYRINGE SUBCUT SCH (09:30)
[2021-07-13] MEDS: PANTOPRAZOLE 40 MG TABLET PO SCH (09:30)
[2021-07-13] MEDS: DOCUSATE SODIUM 100 MG CAPSULE PO SCH (09:33)
[2021-07-13] MEDS: ATORVASTATIN 40 MG TABLET PO SCH (09:33)
[2021-07-13] MEDS: POTASSIUM CHLORIDE 20 MEQ TABLET PO SCH (09:33)
[2021-07-13] MEDS: cefTRIAXone 1,000 MG in SODIUM CHLORIDE 0.9% 100 ML IV SCH (09:33)
[2021-07-13] MEDS: carvediloL 25 MG TABLET PO SCH (09:33)
[2021-07-13] MEDS: WARFARIN 7.5 MG TABLET PO ONE ×2 (09:34→10:09)
[2021-07-13] MEDS: FUROSEMIDE 40 MG TABLET PO SCH (10:08)
[2021-07-13] MEDS: WARFARIN 7.5 MG TABLET PO SCH (10:09)
[2021-07-13] MEDS ORDERED: WARFARIN 10 MG TABLET PO ONE (11:00)
[2021-07-13 11:31] VITALS: BP 120/60
[2021-07-13] MEDS: ACETAMINOPHEN 325 MG TABLET PO PRN (11:52)
== END 2021-07-13 13:26 | DRG 812 ==
LOC: EDBD → EDUNIT# → EDSEX → N.ED 15:23 → N.EDINP 17:51 → N.5E 21:14
PROVIDERS: ADMIT Family Medicine; ATTEND Family Medicine

== ENCOUNTER 2022-01-11 14:01 | Inpatient (IN) ==
[2022-01-11] MEDS ORDERED: ONDANSETRON 4 MG/2 ML VIAL IV PRN (14:07)
[2022-01-11 15:29] LABS: Basophils # 0.1 10*3/uL (0.0-0.2); Basophils % 0.5 % (0.0-0.8); Eosinophils # 0.1 10*3/uL (0.0-0.87); Eosinophils % 0.8 % (0.00-10.9); Hematocrit 30.1 VOL% (35.7-47.0); Hemoglobin 9.3 GM/DL (12.0-16.0); Immature Granulocytes % 0.3 %; Immature Granulocytes Absolute 0.03 #; Lymphocytes # 1.8 10*3/uL (1.4-4.0); Lymphocytes % 18.2 % (21.3-54.2); Mean Corpuscular HGB Conc 30.9 GM/DL (32-36); Mean Corpuscular Volume 90.9 FL (87-102); Mean Platelet Volume 8.8 FL (9.6-12.0); Monocytes # 0.8 10*3/uL (0.11-0.8); Monocytes % 7.8 % (1.7-12.7); Neutrophils % 72.4 % (38.7-73.9); Platelet Count 572 T/CUMM (130-400); Red Blood Count 3.31 MC/CUMM (3.8-5.5); Red Cell Distribution Width 15.9 % (9.3-17.3); White Blood Count 9.6 T/CUMM (4-12)
[2022-01-11 15:39] LABS: INR 2.8; PT Patient Result 28.8 SECS (10.1-12.1)
[2022-01-11 15:53] LABS: Bilirubin,Total 0.6 MG/DL (0.20-1.00); Calcium 7.6 MG/DL (8.5-10.1); Potassium 4.1 MMOL/L (3.5-5.1); Total Protein 5.9 G/DL (6.4-8.2)
[2022-01-11] MEDS: SODIUM CHLORIDE 0.9% 1,000 ML IV SCH (16:00)
[2022-01-11] MEDS: PIPERACILLIN/TAZOBACTAM 3,375 MG in SODIUM CHLORIDE 0.9% 100 ML IV SCH ×2 (16:00→23:40)
[2022-01-11] MEDS ORDERED: SODIUM CHLORIDE 0.9% 500 ML IV ONE (16:10)
[2022-01-11] MEDS ORDERED: DIPHENOXYLATE/ATROPINE 2.5-0.025 MG TABLET PO PRN (16:11)
[2022-01-11 17:26] LABS: % Iron Saturation 14.3 % (18-50); Ferritin 289.5 ng/mL (8-252)
[2022-01-11 17:30] LABS: Folate 7.35 NG/ML (5.38-24.0)
[2022-01-11] MEDS ORDERED: WARFARIN 3 MG TABLET PO SCH (18:00)
[2022-01-11] MEDS: carvediloL 25 MG TABLET PO SCH (18:30)
[2022-01-11] MEDS: GABAPENTIN 300 MG CAPSULE PO SCH (20:54)
[2022-01-11] MEDS: LOSARTAN 50 MG TABLET PO SCH (20:54)
[2022-01-11] MEDS: ATORVASTATIN 40 MG TABLET PO SCH (20:54)
[2022-01-11] MEDS: DOCUSATE SODIUM 100 MG CAPSULE PO SCH (20:55)
[2022-01-11] MEDS: ACETAMINOPHEN 325 MG TABLET PO PRN (20:58)
[2022-01-11] MEDS ORDERED: ENOXAPARIN 40 MG/0.4 ML SYRINGE SUBCUT SCH (21:00)
[2022-01-12 05:23] LABS: INR 3.1; PT Patient Result 31.8 SECS (10.1-12.1)
[2022-01-12] MEDS: PIPERACILLIN/TAZOBACTAM 3,375 MG in SODIUM CHLORIDE 0.9% 100 ML IV SCH ×3 (06:30→23:21)
[2022-01-12] MEDS: amLODIPine 2.5 MG TABLET PO SCH (08:58)
[2022-01-12] MEDS: GABAPENTIN 100 MG CAPSULE PO SCH (08:58)
[2022-01-12] MEDS: carvediloL 25 MG TABLET PO SCH ×2 (08:58→17:09)
[2022-01-12] MEDS: PANTOPRAZOLE 40 MG TABLET PO SCH (08:58)
[2022-01-12] MEDS: POTASSIUM CHLORIDE 20 MEQ TABLET PO SCH (08:59)
[2022-01-12] MEDS: DOCUSATE SODIUM 100 MG CAPSULE PO SCH ×2 (08:59→21:45)
[2022-01-12] MEDS: ESCITALOPRAM 10 MG TABLET PO SCH (08:59)
[2022-01-12] MEDS: LOSARTAN 50 MG TABLET PO SCH ×2 (08:59→21:44)
[2022-01-12] MEDS: SODIUM CHLORIDE 0.9% 1,000 ML IV SCH (09:02)
[2022-01-12 13:41] LABS: Urine Appearance Clear (Clear); Urine Color Yellow (Yellow)
[2022-01-12 13:42] LABS: Bilirubin,Urine Negative (Negative); Blood, Urine Negative (Negative); Glucose,Urine (UA) Negative (Negative); Ketones,Urine Negative (Negative); Nitrite,Urine Negative (Negative); Protein,Urine Negative (Negative); Urine Urobilinogen 0.2 eU/dL (<2.0)
[2022-01-12 13:50] LABS: RBC,Urine <1 /HPF (0-4); Squamous Epithelial Cell,Urine Occasional /HPF (0-10)
[2022-01-12] MEDS: ATORVASTATIN 40 MG TABLET PO SCH (21:44)
[2022-01-12] MEDS: GABAPENTIN 300 MG CAPSULE PO SCH (21:47)
[2022-01-13] MEDS: ACETAMINOPHEN 325 MG TABLET PO PRN (01:44)
[2022-01-13] MEDS: PIPERACILLIN/TAZOBACTAM 3,375 MG in SODIUM CHLORIDE 0.9% 100 ML IV SCH ×3 (06:16→22:55)
[2022-01-13] MEDS: amLODIPine 2.5 MG TABLET PO SCH (09:38)
[2022-01-13] MEDS: GABAPENTIN 100 MG CAPSULE PO SCH (09:38)
[2022-01-13] MEDS: ESCITALOPRAM 10 MG TABLET PO SCH (09:38)
[2022-01-13] MEDS: LOSARTAN 50 MG TABLET PO SCH ×2 (09:38→20:47)
[2022-01-13] MEDS: PANTOPRAZOLE 40 MG TABLET PO SCH (09:38)
[2022-01-13] MEDS: carvediloL 25 MG TABLET PO SCH ×2 (09:38→16:42)
[2022-01-13] MEDS: POTASSIUM CHLORIDE 20 MEQ TABLET PO SCH (09:38)
[2022-01-13] MEDS: DOCUSATE SODIUM 100 MG CAPSULE PO SCH ×2 (09:38→20:52)
[2022-01-13] MEDS: SODIUM CHLORIDE 0.9% 1,000 ML IV SCH ×2 (16:41→22:54)
[2022-01-13] MEDS: ATORVASTATIN 40 MG TABLET PO SCH (20:48)
[2022-01-13] MEDS: GABAPENTIN 300 MG CAPSULE PO SCH (20:50)
[2022-01-14] MEDS: ACETAMINOPHEN 325 MG TABLET PO PRN (02:14)
[2022-01-14 05:54] LABS: Basophils # 0.1 10*3/uL (0.0-0.2); Basophils % 0.8 % (0.0-0.8); Eosinophils # 0.2 10*3/uL (0.0-0.87); Eosinophils % 2.9 % (0.00-10.9); Hematocrit 27.2 VOL% (35.7-47.0); Hemoglobin 8.4 GM/DL (12.0-16.0); Immature Granulocytes % 0.5 %; Immature Granulocytes Absolute 0.04 #; Lymphocytes # 1.7 10*3/uL (1.4-4.0); Lymphocytes % 23.6 % (21.3-54.2); Mean Corpuscular HGB Conc 30.9 GM/DL (32-36); Mean Corpuscular Volume 90.1 FL (87-102); Mean Platelet Volume 8.8 FL (9.6-12.0); Monocytes # 0.7 10*3/uL (0.11-0.8); Monocytes % 9.7 % (1.7-12.7); Neutrophils % 62.5 % (38.7-73.9); Platelet Count 480 T/CUMM (130-400); Red Blood Count 3.02 MC/CUMM (3.8-5.5); Red Cell Distribution Width 15.8 % (9.3-17.3); White Blood Count 7.3 T/CUMM (4-12)
[2022-01-14 06:12] LABS: Albumin 1.7 G/DL (3.4-5.0); Bilirubin,Total 0.6 MG/DL (0.20-1.00); Calcium 7.1 MG/DL (8.5-10.1); Osmolality,Calculated 272.5 MOS/KG (273-304)
[2022-01-14] MEDS: PIPERACILLIN/TAZOBACTAM 3,375 MG in SODIUM CHLORIDE 0.9% 100 ML IV SCH ×2 (06:17→15:15)
[2022-01-14 06:35] LABS: Potassium 2.5 MMOL/L (3.5-5.1)
[2022-01-14] MEDS: POTASSIUM CHLORIDE 20 MEQ TABLET PO SCH (08:30)
[2022-01-14] MEDS: amLODIPine 2.5 MG TABLET PO SCH (08:30)
[2022-01-14] MEDS: GABAPENTIN 100 MG CAPSULE PO SCH (08:30)
[2022-01-14] MEDS: PANTOPRAZOLE 40 MG TABLET PO SCH (08:31)
[2022-01-14] MEDS: carvediloL 25 MG TABLET PO SCH ×2 (08:31→16:42)
[2022-01-14] MEDS: DOCUSATE SODIUM 100 MG CAPSULE PO SCH ×2 (08:31→21:25)
[2022-01-14] MEDS: LOSARTAN 50 MG TABLET PO SCH ×2 (08:31→21:25)
[2022-01-14] MEDS: ESCITALOPRAM 10 MG TABLET PO SCH (08:31)
[2022-01-14] MEDS: ENOXAPARIN 30 MG/0.3 ML SYRINGE SUBCUT SCH (10:26)
[2022-01-14] MEDS: SODIUM CHLORIDE 0.9% 1,000 ML IV SCH (16:44)
[2022-01-14] MEDS: GABAPENTIN 300 MG CAPSULE PO SCH (21:25)
[2022-01-14] MEDS: ATORVASTATIN 40 MG TABLET PO SCH (21:25)
[2022-01-15] MEDS: SODIUM CHLORIDE 0.9% 1,000 ML IV SCH (00:29)
[2022-01-15] MEDS: PIPERACILLIN/TAZOBACTAM 3,375 MG in SODIUM CHLORIDE 0.9% 100 ML IV SCH ×3 (00:29→16:50)
[2022-01-15 07:59] LABS: INR 1.6; PT Patient Result 17.2 SECS (10.1-12.1)
[2022-01-15 08:12] LABS: Calcium 7.2 MG/DL (8.5-10.1); Osmolality,Calculated 269.7 MOS/KG (273-304)
[2022-01-15 08:14] LABS: Potassium 2.3 MMOL/L (3.5-5.1)
[2022-01-15] MEDS: GABAPENTIN 100 MG CAPSULE PO SCH (09:05)
[2022-01-15] MEDS: amLODIPine 2.5 MG TABLET PO SCH (09:05)
[2022-01-15] MEDS: POTASSIUM CHLORIDE RIDER 10 MEQ/100 ML PREMIX IV PRN ×6 (09:05→22:50)
[2022-01-15] MEDS: POTASSIUM CHLORIDE 20 MEQ TABLET PO SCH (09:05)
[2022-01-15] MEDS: DOCUSATE SODIUM 100 MG CAPSULE PO SCH ×2 (09:05→21:08)
[2022-01-15] MEDS: LOSARTAN 50 MG TABLET PO SCH ×2 (09:06→21:08)
[2022-01-15] MEDS: carvediloL 25 MG TABLET PO SCH ×2 (09:06→16:50)
[2022-01-15] MEDS: PANTOPRAZOLE 40 MG TABLET PO SCH (09:06)
[2022-01-15] MEDS: ENOXAPARIN 30 MG/0.3 ML SYRINGE SUBCUT SCH (09:06)
[2022-01-15] MEDS: ESCITALOPRAM 10 MG TABLET PO SCH (09:08)
[2022-01-15] MEDS ORDERED: MAGNESIUM SULF RIDER 2 GM/50 ML PREMIX IV PRN (12:31)
[2022-01-15] MEDS: MAGNESIUM SULF RIDER 4 GM/100 ML PREMIX IV PRN (15:26)
[2022-01-15] MEDS: GABAPENTIN 300 MG CAPSULE PO SCH (21:08)
[2022-01-15] MEDS: ATORVASTATIN 40 MG TABLET PO SCH (21:08)
[2022-01-16] MEDS: POTASSIUM CHLORIDE RIDER 10 MEQ/100 ML PREMIX IV PRN ×3 (00:05→02:13)
[2022-01-16] MEDS: PIPERACILLIN/TAZOBACTAM 3,375 MG in SODIUM CHLORIDE 0.9% 100 ML IV SCH ×2 (03:31→12:43)
[2022-01-16] MEDS: POTASSIUM CHLORIDE INJ 40 MEQ in SODIUM CHLORIDE 0.45% 1,000 ML IV SCH ×2 (08:26→22:50)
[2022-01-16] MEDS: PANTOPRAZOLE 40 MG TABLET PO SCH (08:28)
[2022-01-16] MEDS: GABAPENTIN 100 MG CAPSULE PO SCH (08:28)
[2022-01-16] MEDS: DOCUSATE SODIUM 100 MG CAPSULE PO SCH ×2 (08:28→21:40)
[2022-01-16] MEDS: POTASSIUM CHLORIDE 10 MEQ TABLET PO SCH ×3 (08:28→21:39)
[2022-01-16] MEDS: carvediloL 25 MG TABLET PO SCH ×2 (08:28→16:22)
[2022-01-16] MEDS: LOSARTAN 50 MG TABLET PO SCH ×2 (08:28→21:39)
[2022-01-16] MEDS: amLODIPine 2.5 MG TABLET PO SCH (08:28)
[2022-01-16] MEDS: ESCITALOPRAM 10 MG TABLET PO SCH (08:29)
[2022-01-16] MEDS: ENOXAPARIN 30 MG/0.3 ML SYRINGE SUBCUT SCH (10:18)
[2022-01-16] MEDS: SODIUM CHLORIDE 0.9% 1,000 ML IV SCH (10:42)
[2022-01-16] MEDS ORDERED: NITROGLYCERIN SL 0.4 MG TABLET SL ONE ×2 (11:40)
[2022-01-16] MEDS ORDERED: ONDANSETRON 4 MG/2 ML VIAL IV ONE (11:40)
[2022-01-16] MEDS ORDERED: NITROGLYCERIN SL 0.4 MG TABLET SL PRN (12:47)
[2022-01-16] MEDS ORDERED: ENOXAPARIN 30 MG/0.3 ML SYRINGE SUBCUT ONE (13:00)
[2022-01-16] MEDS: VANCOMYCIN INJ 1,000 MG in SODIUM CHLORIDE 0.9% 250 ML IV SCH (14:10)
[2022-01-16] MEDS: ERTAPENEM 1,000 MG in SODIUM CHLORIDE 0.9% 100 ML IV SCH (15:11)
[2022-01-16] MEDS: ATORVASTATIN 40 MG TABLET PO SCH (21:39)
[2022-01-16] MEDS: ENOXAPARIN 60 MG/0.6 ML SYRINGE SUBCUT SCH (21:40)
[2022-01-16] MEDS: GABAPENTIN 300 MG CAPSULE PO SCH (21:48)
[2022-01-17] MEDS: VANCOMYCIN INJ 1,000 MG in SODIUM CHLORIDE 0.9% 250 ML IV SCH ×2 (01:04→13:03)
[2022-01-17 05:00] LABS: Calcium 7.3 MG/DL (8.5-10.1); Osmolality,Calculated 268.8 MOS/KG (273-304); Potassium 3.8 MMOL/L (3.5-5.1)
[2022-01-17] MEDS: carvediloL 25 MG TABLET PO SCH ×2 (07:53→16:18)
[2022-01-17] MEDS: FUROSEMIDE 40 MG/4 ML VIAL IV SCH ×2 (07:53→16:17)
[2022-01-17] MEDS: POTASSIUM CHLORIDE 10 MEQ TABLET PO SCH ×3 (08:00→21:34)
[2022-01-17] MEDS: ESCITALOPRAM 10 MG TABLET PO SCH (08:00)
[2022-01-17] MEDS: LOSARTAN 50 MG TABLET PO SCH ×2 (08:00→21:34)
[2022-01-17] MEDS: DOCUSATE SODIUM 100 MG CAPSULE PO SCH ×2 (08:00→21:33)
[2022-01-17] MEDS: GABAPENTIN 100 MG CAPSULE PO SCH (08:00)
[2022-01-17] MEDS: ENOXAPARIN 60 MG/0.6 ML SYRINGE SUBCUT SCH ×2 (08:00→20:30)
[2022-01-17] MEDS: amLODIPine 2.5 MG TABLET PO SCH (08:00)
[2022-01-17] MEDS: PANTOPRAZOLE 40 MG TABLET PO SCH (08:01)
[2022-01-17 09:33] LABS: Basophils % 0.5 % (0.0-0.8); Eosinophils # 0.1 10*3/uL (0.0-0.87); Eosinophils % 1.8 % (0.00-10.9); Hematocrit 29.8 VOL% (35.7-47.0); Hemoglobin 9.1 GM/DL (12.0-16.0); Immature Granulocytes % 0.6 %; Immature Granulocytes Absolute 0.04 #; Lymphocytes # 1.3 10*3/uL (1.4-4.0); Lymphocytes % 19.2 % (21.3-54.2); Mean Corpuscular HGB Conc 30.5 GM/DL (32-36); Mean Corpuscular Volume 92.3 FL (87-102); Mean Platelet Volume 8.7 FL (9.6-12.0); Monocytes # 0.6 10*3/uL (0.11-0.8); Monocytes % 8.4 % (1.7-12.7); Neutrophils % 69.5 % (38.7-73.9); Platelet Count 488 T/CUMM (130-400); Red Blood Count 3.23 MC/CUMM (3.8-5.5); Red Cell Distribution Width 15.9 % (9.3-17.3); White Blood Count 6.5 T/CUMM (4-12)
[2022-01-17] MEDS: POTASSIUM CHLORIDE INJ 40 MEQ in SODIUM CHLORIDE 0.45% 1,000 ML IV SCH (10:44)
[2022-01-17] MEDS: ERTAPENEM 1,000 MG in SODIUM CHLORIDE 0.9% 100 ML IV SCH (14:43)
[2022-01-17] MEDS: GABAPENTIN 300 MG CAPSULE PO SCH (21:33)
[2022-01-17] MEDS: ATORVASTATIN 40 MG TABLET PO SCH (21:34)
[2022-01-18] MEDS: VANCOMYCIN INJ 1,000 MG in SODIUM CHLORIDE 0.9% 250 ML IV SCH (01:07)
[2022-01-18 05:44] LABS: Basophils % 0.6 % (0.0-0.8); Eosinophils # 0.3 10*3/uL (0.0-0.87); Hematocrit 28.8 VOL% (35.7-47.0); Hemoglobin 8.7 GM/DL (12.0-16.0); Immature Granulocytes % 0.3 %; Immature Granulocytes Absolute 0.02 #; Lymphocytes # 1.8 10*3/uL (1.4-4.0); Lymphocytes % 27.4 % (21.3-54.2); Mean Corpuscular HGB Conc 30.2 GM/DL (32-36); Mean Corpuscular Volume 92.6 FL (87-102); Mean Platelet Volume 8.6 FL (9.6-12.0); Monocytes # 0.6 10*3/uL (0.11-0.8); Monocytes % 9.8 % (1.7-12.7); Neutrophils % 57.9 % (38.7-73.9); Platelet Count 445 T/CUMM (130-400); Red Blood Count 3.11 MC/CUMM (3.8-5.5); Red Cell Distribution Width 15.9 % (9.3-17.3); White Blood Count 6.5 T/CUMM (4-12)
[2022-01-18] MEDS: FUROSEMIDE 40 MG/4 ML VIAL IV SCH ×2 (10:13→18:08)
[2022-01-18 10:23] LABS: INR 1.1; PT Patient Result 12.4 SECS (10.1-12.1)
[2022-01-18] MEDS: LOSARTAN 50 MG TABLET PO SCH ×2 (12:44→20:44)
[2022-01-18] MEDS: DOCUSATE SODIUM 100 MG CAPSULE PO SCH ×2 (12:44→21:52)
[2022-01-18] MEDS: PANTOPRAZOLE 40 MG TABLET PO SCH (12:44)
[2022-01-18] MEDS: POTASSIUM CHLORIDE 10 MEQ TABLET PO SCH ×3 (12:44→20:44)
[2022-01-18] MEDS: GABAPENTIN 100 MG CAPSULE PO SCH (12:44)
[2022-01-18] MEDS: carvediloL 25 MG TABLET PO SCH ×2 (12:44→18:08)
[2022-01-18] MEDS: ESCITALOPRAM 10 MG TABLET PO SCH (12:44)
[2022-01-18] MEDS: amLODIPine 2.5 MG TABLET PO SCH (12:44)
[2022-01-18] MEDS: ERTAPENEM 1,000 MG in SODIUM CHLORIDE 0.9% 100 ML IV SCH (18:08)
[2022-01-18] MEDS: ATORVASTATIN 40 MG TABLET PO SCH (20:44)
[2022-01-18] MEDS: ENOXAPARIN 60 MG/0.6 ML SYRINGE SUBCUT SCH (20:45)
[2022-01-18] MEDS: GABAPENTIN 300 MG CAPSULE PO SCH (20:51)
[2022-01-19 05:51] LABS: Calcium 7.9 MG/DL (8.5-10.1); Osmolality,Calculated 272.7 MOS/KG (273-304); Potassium 3.7 MMOL/L (3.5-5.1)
[2022-01-19] MEDS: PANTOPRAZOLE 40 MG TABLET PO SCH (08:44)
[2022-01-19] MEDS: GABAPENTIN 300 MG CAPSULE PO SCH ×2 (08:44→21:00)
[2022-01-19] MEDS: amLODIPine 2.5 MG TABLET PO SCH (08:44)
[2022-01-19] MEDS: carvediloL 25 MG TABLET PO SCH ×2 (08:44→16:31)
[2022-01-19] MEDS: LOSARTAN 50 MG TABLET PO SCH (08:44)
[2022-01-19] MEDS: POTASSIUM CHLORIDE 10 MEQ TABLET PO SCH ×3 (08:44→21:00)
[2022-01-19] MEDS: ESCITALOPRAM 10 MG TABLET PO SCH (08:44)
[2022-01-19] MEDS: GABAPENTIN 100 MG CAPSULE PO SCH (08:47)
[2022-01-19] MEDS: DOCUSATE SODIUM 100 MG CAPSULE PO SCH ×2 (08:47→21:01)
[2022-01-19] MEDS: ENOXAPARIN 60 MG/0.6 ML SYRINGE SUBCUT SCH ×2 (08:48→21:01)
[2022-01-19] MEDS: FUROSEMIDE 40 MG/4 ML VIAL IV SCH (08:52)
[2022-01-19] MEDS ORDERED: SODIUM CHLORIDE 0.9% 250 ML IV ONE (10:44)
[2022-01-19 12:38] LABS: Basophils % 0.4 % (0.0-0.8); Eosinophils # 0.2 10*3/uL (0.0-0.87); Eosinophils % 2.4 % (0.00-10.9); Hematocrit 32.1 VOL% (35.7-47.0); Immature Granulocytes % 0.4 %; Immature Granulocytes Absolute 0.04 #; Lymphocytes # 1.8 10*3/uL (1.4-4.0); Lymphocytes % 19.7 % (21.3-54.2); Mean Corpuscular HGB Conc 31.2 GM/DL (32-36); Mean Corpuscular Volume 91.5 FL (87-102); Mean Platelet Volume 8.9 FL (9.6-12.0); Monocytes # 0.7 10*3/uL (0.11-0.8); Monocytes % 8.1 % (1.7-12.7); Platelet Count 533 T/CUMM (130-400); Red Blood Count 3.51 MC/CUMM (3.8-5.5); Red Cell Distribution Width 15.9 % (9.3-17.3); White Blood Count 9.1 T/CUMM (4-12)
[2022-01-19] MEDS: ERTAPENEM 1,000 MG in SODIUM CHLORIDE 0.9% 100 ML IV SCH (14:57)
[2022-01-19] MEDS ORDERED: WARFARIN 2.5 MG TABLET PO SCH (18:00)
[2022-01-19] MEDS: ATORVASTATIN 40 MG TABLET PO SCH (21:00)
[2022-01-19] MEDS: ACETAMINOPHEN 325 MG TABLET PO PRN (23:22)
[2022-01-20 05:19] LABS: INR 1.2
[2022-01-20] MEDS: amLODIPine 2.5 MG TABLET PO SCH (09:19)
[2022-01-20] MEDS: ESCITALOPRAM 10 MG TABLET PO SCH (09:19)
[2022-01-20] MEDS: ENOXAPARIN 60 MG/0.6 ML SYRINGE SUBCUT SCH ×2 (09:19→20:26)
[2022-01-20] MEDS: PANTOPRAZOLE 40 MG TABLET PO SCH (09:19)
[2022-01-20] MEDS: GABAPENTIN 100 MG CAPSULE PO SCH (09:19)
[2022-01-20] MEDS: carvediloL 25 MG TABLET PO SCH ×2 (09:19→16:07)
[2022-01-20] MEDS: POTASSIUM CHLORIDE 10 MEQ TABLET PO SCH ×3 (09:19→20:26)
[2022-01-20] MEDS: DOCUSATE SODIUM 100 MG CAPSULE PO SCH ×2 (10:08→20:26)
[2022-01-20] MEDS: COLESTIPOL 1 GM TABLET PO SCH (10:22)
[2022-01-20] MEDS: ERTAPENEM 1,000 MG in SODIUM CHLORIDE 0.9% 100 ML IV SCH (13:46)
[2022-01-20] MEDS: ACETAMINOPHEN 325 MG TABLET PO PRN (16:11)
[2022-01-20] MEDS: GABAPENTIN 300 MG CAPSULE PO SCH (20:26)
[2022-01-20] MEDS: ATORVASTATIN 40 MG TABLET PO SCH (20:26)
[2022-01-21 05:38] LABS: Basophils % 0.5 % (0.0-0.8); Eosinophils # 0.2 10*3/uL (0.0-0.87); Eosinophils % 2.5 % (0.00-10.9); Hematocrit 29.6 VOL% (35.7-47.0); Hemoglobin 9.2 GM/DL (12.0-16.0); Immature Granulocytes % 0.5 %; Immature Granulocytes Absolute 0.03 #; Lymphocytes # 1.3 10*3/uL (1.4-4.0); Lymphocytes % 19.8 % (21.3-54.2); Mean Corpuscular HGB Conc 31.1 GM/DL (32-36); Mean Corpuscular Volume 91.1 FL (87-102); Mean Platelet Volume 8.6 FL (9.6-12.0); Monocytes # 0.6 10*3/uL (0.11-0.8); Neutrophils % 67.7 % (38.7-73.9); Platelet Count 442 T/CUMM (130-400); Red Blood Count 3.25 MC/CUMM (3.8-5.5); Red Cell Distribution Width 15.9 % (9.3-17.3); White Blood Count 6.5 T/CUMM (4-12)
[2022-01-21 05:59] LABS: INR 1.2; PT Patient Result 12.9 SECS (10.1-12.1)
[2022-01-21 06:10] LABS: Albumin 1.8 G/DL (3.4-5.0); Bilirubin,Total 0.4 MG/DL (0.20-1.00); Calcium 7.6 MG/DL (8.5-10.1); Osmolality,Calculated 272.7 MOS/KG (273-304); Potassium 3.4 MMOL/L (3.5-5.1); Total Protein 5.4 G/DL (6.4-8.2)
[2022-01-21] MEDS: amLODIPine 2.5 MG TABLET PO SCH (09:25)
[2022-01-21] MEDS: POTASSIUM CHLORIDE 10 MEQ TABLET PO SCH ×3 (09:26→20:41)
[2022-01-21] MEDS: GABAPENTIN 100 MG CAPSULE PO SCH (09:26)
[2022-01-21] MEDS: carvediloL 25 MG TABLET PO SCH ×2 (09:26→17:07)
[2022-01-21] MEDS: PANTOPRAZOLE 40 MG TABLET PO SCH (09:26)
[2022-01-21] MEDS: ESCITALOPRAM 10 MG TABLET PO SCH (09:26)
[2022-01-21] MEDS: DOCUSATE SODIUM 100 MG CAPSULE PO SCH ×2 (09:26→20:42)
[2022-01-21] MEDS: ENOXAPARIN 60 MG/0.6 ML SYRINGE SUBCUT SCH ×2 (09:27→20:41)
[2022-01-21] MEDS: COLESTIPOL 1 GM TABLET PO SCH (10:36)
[2022-01-21] MEDS: ERTAPENEM 1,000 MG in SODIUM CHLORIDE 0.9% 100 ML IV SCH (14:44)
[2022-01-21] MEDS: ACETAMINOPHEN 325 MG TABLET PO PRN (17:07)
[2022-01-21] MEDS: ATORVASTATIN 40 MG TABLET PO SCH (20:41)
[2022-01-21] MEDS: GABAPENTIN 300 MG CAPSULE PO SCH (20:42)
[2022-01-22] MEDS: ENOXAPARIN 60 MG/0.6 ML SYRINGE SUBCUT SCH ×2 (08:53→20:01)
[2022-01-22] MEDS: POTASSIUM CHLORIDE 10 MEQ TABLET PO SCH ×3 (08:54→20:01)
[2022-01-22] MEDS: carvediloL 25 MG TABLET PO SCH ×2 (08:54→17:05)
[2022-01-22] MEDS: GABAPENTIN 100 MG CAPSULE PO SCH (08:54)
[2022-01-22] MEDS: amLODIPine 2.5 MG TABLET PO SCH (08:55)
[2022-01-22] MEDS: PANTOPRAZOLE 40 MG TABLET PO SCH (08:55)
[2022-01-22] MEDS: ESCITALOPRAM 10 MG TABLET PO SCH (08:55)
[2022-01-22] MEDS: DOCUSATE SODIUM 100 MG CAPSULE PO SCH ×2 (09:04→20:01)
[2022-01-22] MEDS: COLESTIPOL 1 GM TABLET PO SCH (10:01)
[2022-01-22] MEDS: ERTAPENEM 1,000 MG in SODIUM CHLORIDE 0.9% 100 ML IV SCH (14:27)
[2022-01-22] MEDS: GABAPENTIN 300 MG CAPSULE PO SCH (20:01)
[2022-01-22] MEDS: ATORVASTATIN 40 MG TABLET PO SCH (20:01)
[2022-01-23] MEDS: DESITIN 4OZ/NYSTATIN 15 GRAM MIXTURE PASTE TOP SCH ×3 (00:32→21:26)
[2022-01-23 08:28] LABS: Basophils % 0.6 % (0.0-0.8); Eosinophils # 0.2 10*3/uL (0.0-0.87); Eosinophils % 2.5 % (0.00-10.9); Hematocrit 30.5 VOL% (35.7-47.0); Hemoglobin 9.4 GM/DL (12.0-16.0); Immature Granulocytes % 0.5 %; Immature Granulocytes Absolute 0.03 #; Lymphocytes # 1.5 10*3/uL (1.4-4.0); Lymphocytes % 23.9 % (21.3-54.2); Mean Corpuscular HGB Conc 30.8 GM/DL (32-36); Mean Corpuscular Volume 92.7 FL (87-102); Mean Platelet Volume 8.6 FL (9.6-12.0); Monocytes # 0.5 10*3/uL (0.11-0.8); Monocytes % 7.8 % (1.7-12.7); Neutrophils % 64.7 % (38.7-73.9); Platelet Count 476 T/CUMM (130-400); Red Blood Count 3.29 MC/CUMM (3.8-5.5); Red Cell Distribution Width 15.8 % (9.3-17.3); White Blood Count 6.4 T/CUMM (4-12)
[2022-01-23] MEDS ORDERED: WARFARIN 5 MG TABLET PO ONE (08:30)
[2022-01-23] MEDS: amLODIPine 2.5 MG TABLET PO SCH (08:30)
[2022-01-23] MEDS: GABAPENTIN 100 MG CAPSULE PO SCH (08:31)
[2022-01-23] MEDS: ESCITALOPRAM 10 MG TABLET PO SCH (08:31)
[2022-01-23] MEDS: DOCUSATE SODIUM 100 MG CAPSULE PO SCH ×2 (08:31→20:47)
[2022-01-23] MEDS: carvediloL 25 MG TABLET PO SCH ×2 (08:31→17:05)
[2022-01-23] MEDS: PANTOPRAZOLE 40 MG TABLET PO SCH (08:31)
[2022-01-23] MEDS: POTASSIUM CHLORIDE 10 MEQ TABLET PO SCH ×3 (08:31→20:47)
[2022-01-23] MEDS: ENOXAPARIN 60 MG/0.6 ML SYRINGE SUBCUT SCH ×2 (08:32→20:51)
[2022-01-23 08:40] LABS: INR 1.1; PT Patient Result 12.3 SECS (10.1-12.1)
[2022-01-23 09:06] LABS: Eosinophils 4 % (0-10); Lymphocytes 25 % (20-55); Total Cells Counted 100
[2022-01-23 09:07] LABS: Hypochromia Slight; Microcytosis Slight; Platelet Estimate Adequate
[2022-01-23] MEDS ORDERED: TUBERCULIN SKIN TEST 0.1 ML SYRINGE INTRADERM ONE (11:00)
[2022-01-23] MEDS: COLESTIPOL 1 GM TABLET PO SCH (12:15)
[2022-01-23] MEDS: ERTAPENEM 1,000 MG in SODIUM CHLORIDE 0.9% 100 ML IV SCH (14:49)
[2022-01-23] MEDS: ACETAMINOPHEN 325 MG TABLET PO PRN (17:05)
[2022-01-23] MEDS: ATORVASTATIN 40 MG TABLET PO SCH (20:47)
[2022-01-23] MEDS: GABAPENTIN 300 MG CAPSULE PO SCH (20:47)
[2022-01-24 05:18] LABS: INR 1.2; PT Patient Result 13.1 SECS (10.1-12.1)
[2022-01-24] MEDS ORDERED: MAGNESIUM SULF RIDER 2 GM/50 ML PREMIX IV ONE (08:00)
[2022-01-24] MEDS: carvediloL 25 MG TABLET PO SCH ×2 (08:29→16:39)
[2022-01-24] MEDS: ENOXAPARIN 60 MG/0.6 ML SYRINGE SUBCUT SCH ×2 (08:29→20:19)
[2022-01-24] MEDS: MAGNESIUM SULF RIDER 4 GM/100 ML PREMIX IV PRN (08:29)
[2022-01-24] MEDS: amLODIPine 2.5 MG TABLET PO SCH (08:29)
[2022-01-24] MEDS: GABAPENTIN 100 MG CAPSULE PO SCH (08:30)
[2022-01-24] MEDS: POTASSIUM CHLORIDE 10 MEQ TABLET PO SCH ×3 (08:30→20:18)
[2022-01-24] MEDS: PANTOPRAZOLE 40 MG TABLET PO SCH (08:30)
[2022-01-24] MEDS: ESCITALOPRAM 10 MG TABLET PO SCH (08:30)
[2022-01-24] MEDS: DOCUSATE SODIUM 100 MG CAPSULE PO SCH ×2 (08:30→20:18)
[2022-01-24] MEDS: DESITIN 4OZ/NYSTATIN 15 GRAM MIXTURE PASTE TOP SCH ×2 (08:36→20:19)
[2022-01-24] MEDS: COLESTIPOL 1 GM TABLET PO SCH (10:12)
[2022-01-24] MEDS: DILTIAZEM 60 MG TABLET PO SCH ×2 (16:39→20:18)
[2022-01-24] MEDS: WARFARIN 2.5 MG TABLET PO SCH (17:14)
[2022-01-24] MEDS ORDERED: LORazepam 0.5 MG TABLET PO PRN (18:08)
[2022-01-24] MEDS: GABAPENTIN 300 MG CAPSULE PO SCH (20:18)
[2022-01-24] MEDS: ATORVASTATIN 40 MG TABLET PO SCH (20:19)
[2022-01-25 07:39] LABS: INR 1.3; PT Patient Result 13.6 SECS (10.1-12.1)
[2022-01-25] MEDS: carvediloL 25 MG TABLET PO SCH ×2 (08:06→17:12)
[2022-01-25] MEDS: ENOXAPARIN 60 MG/0.6 ML SYRINGE SUBCUT SCH ×2 (08:06→21:37)
[2022-01-25] MEDS: DILTIAZEM 60 MG TABLET PO SCH ×4 (08:06→21:34)
[2022-01-25] MEDS: POTASSIUM CHLORIDE 10 MEQ TABLET PO SCH ×3 (08:06→21:35)
[2022-01-25] MEDS: amLODIPine 2.5 MG TABLET PO SCH (08:06)
[2022-01-25 08:07] LABS: Calcium 8.4 MG/DL (8.5-10.1); Osmolality,Calculated 275.7 MOS/KG (273-304)
[2022-01-25] MEDS: DOCUSATE SODIUM 100 MG CAPSULE PO SCH ×2 (08:07→21:35)
[2022-01-25] MEDS: ESCITALOPRAM 10 MG TABLET PO SCH (08:07)
[2022-01-25] MEDS: GABAPENTIN 100 MG CAPSULE PO SCH (08:07)
[2022-01-25] MEDS ORDERED: WARFARIN 5 MG TABLET PO ONE (08:30)
[2022-01-25 08:33] LABS: Basophils # 0.1 10*3/uL (0.0-0.2); Basophils % 0.7 % (0.0-0.8); Eosinophils # 0.1 10*3/uL (0.0-0.87); Eosinophils % 1.4 % (0.00-10.9); Hematocrit 30.7 VOL% (35.7-47.0); Hemoglobin 9.8 GM/DL (12.0-16.0); Immature Granulocytes % 0.3 %; Immature Granulocytes Absolute 0.03 #; Lymphocytes % 20.8 % (21.3-54.2); Mean Corpuscular HGB Conc 31.9 GM/DL (32-36); Mean Corpuscular Volume 89.2 FL (87-102); Mean Platelet Volume 9.2 FL (9.6-12.0); Monocytes # 0.7 10*3/uL (0.11-0.8); Monocytes % 7.4 % (1.7-12.7); Neutrophils % 69.4 % (38.7-73.9); Red Blood Count 3.44 MC/CUMM (3.8-5.5); Red Cell Distribution Width 15.9 % (9.3-17.3)
[2022-01-25 08:34] LABS: Platelet Count 634 T/CUMM (130-400); White Blood Count 9.8 T/CUMM (4-12)
[2022-01-25] MEDS: PANTOPRAZOLE 40 MG TABLET PO SCH (08:35)
[2022-01-25] MEDS: DESITIN 4OZ/NYSTATIN 15 GRAM MIXTURE PASTE TOP SCH ×2 (08:35→22:47)
[2022-01-25] MEDS ORDERED: SODIUM CHLORIDE 0.9% 1,000 ML IV SCH (09:00)
[2022-01-25] MEDS: COLESTIPOL 1 GM TABLET PO SCH (09:44)
[2022-01-25] MEDS: DEXTROSE 5% NACL 0.45% 1,000 ML IV SCH ×2 (11:23→22:48)
[2022-01-25 11:32] LABS: Mucus,Urine Occasional /LPF (Occasional); RBC,Urine 1 /HPF (0-4); Squamous Epithelial Cell,Urine Occasional /HPF (0-10)
[2022-01-25 11:33] LABS: Bilirubin,Urine Negative (Negative); Blood, Urine Trace mg/dL (Negative); Glucose,Urine (UA) Negative (Negative); Ketones,Urine Negative (Negative); Nitrite,Urine Negative (Negative); Protein,Urine Negative (Negative); Urine Appearance Clear (Clear); Urine Color Yellow (Yellow); Urine Specific Gravity 1.015 (1.001-1.035); Urine Urobilinogen 0.2 eU/dL (<2.0)
[2022-01-25] MEDS: WARFARIN 2.5 MG TABLET PO SCH (17:12)
[2022-01-25] MEDS: GABAPENTIN 300 MG CAPSULE PO SCH (21:35)
[2022-01-25] MEDS: ATORVASTATIN 40 MG TABLET PO SCH (21:35)
[2022-01-26] MEDS: ACETAMINOPHEN 325 MG TABLET PO PRN (02:24)
[2022-01-26 06:16] LABS: INR 1.8; PT Patient Result 18.6 SECS (10.1-12.1)
[2022-01-26] MEDS: POTASSIUM CHLORIDE RIDER 10 MEQ/100 ML PREMIX IV PRN ×5 (09:07→15:06)
[2022-01-26] MEDS: amLODIPine 2.5 MG TABLET PO SCH (09:12)
[2022-01-26] MEDS: DILTIAZEM 60 MG TABLET PO SCH ×2 (09:12→14:03)
[2022-01-26] MEDS: DOCUSATE SODIUM 100 MG CAPSULE PO SCH (09:12)
[2022-01-26] MEDS: GABAPENTIN 100 MG CAPSULE PO SCH (09:12)
[2022-01-26] MEDS: ESCITALOPRAM 10 MG TABLET PO SCH (09:12)
[2022-01-26] MEDS: PANTOPRAZOLE 40 MG TABLET PO SCH (09:12)
[2022-01-26] MEDS: POTASSIUM CHLORIDE 10 MEQ TABLET PO SCH ×2 (09:12→15:07)
[2022-01-26] MEDS: carvediloL 25 MG TABLET PO SCH (09:12)
[2022-01-26] MEDS: ENOXAPARIN 60 MG/0.6 ML SYRINGE SUBCUT SCH (09:14)
[2022-01-26] MEDS: DESITIN 4OZ/NYSTATIN 15 GRAM MIXTURE PASTE TOP SCH (09:14)
[2022-01-26] MEDS: COLESTIPOL 1 GM TABLET PO SCH (10:06)
[2022-01-26] MEDS: DEXTROSE 5% NACL 0.45% 1,000 ML IV SCH (10:25)
[2022-01-26 11:14] VITALS: BP 103/57
== END 2022-01-26 15:42 | DRG 391 ==
LOC: N.3E 14:22
PROVIDERS: ADMIT Family Medicine; ATTEND Family Medicine